=== PATIENT | female | born 1960 | race Asian ===

== ENCOUNTER 2024-11-27 16:13 | Inpatient (IN) ==
[2024-11-27 17:23] LABS: BASOPHILS % (AUTO) 0.2 %; EOSINOPHILS # (AUTO) 0.1 10^3/uL (0.0-0.7); EOSINOPHILS % (AUTO) 0.4 %; HCT - HEMATOCRIT 38.6 % (37.0-47.0); HGB - HEMOGLOBIN 12.6 g/dL (12.0-16.0); LYMPHOCYTES # (AUTO) 2.9 10^3/uL (1.5-3.5); LYMPHOCYTES % (AUTO) 15.4 %; MEAN CORPUSCULAR HEMOGLOBIN 31.4 pg (27.0-31.0); MEAN CORPUSCULAR HGB CONC 32.6 g/dL (32.0-36.0); MEAN CORPUSCULAR VOLUME 96.3 fL (81.0-99.0); MEAN PLATELET VOLUME 10.5 fL (7.9-10.8); MONOCYTES # (AUTO) 1.2 10^3/uL (0.0-1.0); MONOCYTES % (AUTO) 6.4 %; NEUTROPHILS # (AUTO) 14.6 10^3/uL (1.5-6.6); PLT - PLATELET COUNT 192 10^3/uL (130-450); RED BLOOD COUNT 4.01 10^6/uL (4.20-5.40); RED CELL DISTRIBUTION WIDTH 12.2 % (12.0-15.0)
[2024-11-27 17:36] LABS: ALBUMIN 4.3 g/dL (3.2-5.5); ALBUMIN/GLOBULIN RATIO 1.2 (1.0-2.2); BILIRUBIN,TOTAL 0.6 mg/dL (0.2-1.0); CALCIUM 9.6 mg/dL (8.5-10.3); CREATININE 0.6 mg/dL (0.6-1.3); POTASSIUM 3.6 mmol/L (3.5-4.5); TOTAL PROTEIN 7.9 g/dL (6.4-8.9)
[2024-11-27] MEDS ORDERED: iohexoL-300 100 ML VIAL ONE (18:01)
--- NOTE | 2024-11-27 18:17 | ED Physician Documentation ---
History of Present Illness Stated complaint Stated Complaint: ABD PX Chief complaint Chief Complaint: Abd Pain History obtained from History obtained from: Patient and Family History of Present Illness Pain level max: 6 Pain level now: 6 Additonal information Additional information: Patient is a 64-year-old female who presents to the emergency department for right lower quadrant abdominal pain x 4 days. Saw her PCP today and was sent here for further evaluation. No fevers. Worse with walking and movement. Does not take any medications at home. No nausea, vomiting, diarrhea. No history of abdominal surgeries. No dysuria or urinary frequency. Has not had similar symptoms previously. Does not take any medications at home Review of Systems Constitutional Denies: Fever or Chills Ears, nose, mouth, and throat Denies: Neck pain Respiratory Denies: Cough Gastrointestinal Denies: Nausea or Vomiting Genitourinary Denies: Painful urination, Urinary frequency or Urinary urgency Musculoskeletal Denies: Back pain or Neck pain Meds/Allgy Home Medications Ambulatory Orders Medication Instructions Recorded Confirmed benzonatate 100 mg capsule 100 mg PO TID PRN cough #30 caps 09/07/24 09/07/24 Allergies Allergies Allergy/AdvReac Type Severity Reaction Status Date / Time No Known Drug Allergies Allergy Verified 11/27/24 16:44 [facility], [facility] Medical History Medical History (Updated 11/27/24 @ 18:42 by Benjamin Garcia MD) No pertinent past medical history Surgical History Surgical History (Updated 11/27/24 @ 18:01 by Twyla Starks RN) No pertinent past surgical history Social History Social History (Updated 09/03/24 @ 09:10 by KATY Britton) Smoking Status: Unknown if ever smoked Relationship: Do you feel safe in your home environment?: Yes Suffered physical, verbal, emotional, or financial abuse?: No POLST Patient has POLST: No Exam Constitutional normal general appearance and no apparent distress HENMT oropharynx normal moist mucous membranes Eyes PERRL Neck/C-Spine visual inspection normal Respiratory breath sounds equal bilaterally, normal respiratory effort and clear to auscultation bilaterally Cardiovascular normal heart rate noted and regular rhythm noted Gastrointestinal Tender to palpation right lower quadrant. Tenderness at McBurney's point. No distention. Positive Rovsing and obturator signs. Positive psoas sign. Positive heeltap Genitourinary no CVA tenderness Extremities no edema Neurology speech normal Psychiatry mental status grossly normal and oriented x3 Skin skin color normal Results Vitals Vitals: Vital Signs - 24 hr 11/27/24 16:45 11/27/24 17:59 Temperature 37.0 C 36.7 C Temperature Source Temporal Artery Scan Oral Pulse Rate 106 H 80 Respiratory Rate 18 16 Blood Pressure 133/96 H 128/90 O2 Saturation 100 98 O2 Source Room air Room air Pain Intensity 0 6 Oxygen O2 Source Room air Labs Labs: Laboratory Tests 11/27/24 11/27/24 17:18 18:08 WBC 19.0 H RBC 4.01 L Hgb 12.6 Hct 38.6 MCV 96.3 MCH 31.4 H MCHC 32.6 RDW 12.2 Plt Count 192 MPV 10.5 Neut # (Auto) 14.6 H Lymph # (Auto) 2.9 [place] # (Auto) 1.2 H Eos # (Auto) 0.1 Baso # (Auto) 0.0 Absolute Nucleated RBC 0.00 Nucleated RBC % 0.0 Sodium 135 Potassium 3.6 Chloride 99 L Carbon Dioxide 29 Anion Gap 7.0 BUN 14 Creatinine 0.6 Estimated GFR (MDRD) 101 Glucose 108 H Calcium 9.6 Total Bilirubin 0.6 AST 21 ALT 22 Alkaline Phosphatase 104 Total Protein 7.9 Albumin 4.3 Globulin 3.6 Albumin/Globulin Ratio 1.2 Lipase 11 Urine Color YELLOW Urine Clarity CLEAR Urine pH 6.0 Ur Specific [place] 1.010 Urine Protein NEGATIVE Urine Glucose (UA) NEGATIVE Urine Ketones TRACE Urine Occult Blood NEGATIVE Urine Nitrite NEGATIVE Urine Bilirubin NEGATIVE Urine Urobilinogen 0.2 (NORMAL) Ur Leukocyte Esterase NEGATIVE Ur Microscopic Review NOT INDICATED Urine Culture Comments NOT INDICATED Rads (name of study) CT abdomen pelvis: Relevant Findings:: Final report received PD Medical Decision Making ED course Complexity details: reviewed results, considered differential and d/w patient ED course: 64-year-old female with acute appendicitis on CT scan. Discussed with Dr. Alicea, general surgery who will come and plan on taking the patient to the OR. Patient started on Zosyn. Given IV fluids. Patient signed out to the oncoming emergency department physician awaiting OR. This document was made in part using voice recognition software. While efforts are made to proofread this document, sound alike and grammatical errors may occur. Discharge Plan Discharge Patient Disposition: ED Transfer to [facility] Condition: Stable Clinical Impression: Acute appendicitis Qualifiers: Acute appendicitis type: with localized peritonitis Appendicitis gangrene prese nce: unspecified whether gangrene present Appendicitis perforation presence: unspecified whether perforation present Appendicitis abscess presence: unspecified whether abscess present Qualified Code(s): K35.30 - Acute appendicitis with localized peritonitis, without perforation or gangrene Prescriptions: No Action benzonatate 100 mg capsule 100 mg PO TID PRN (Reason: cough) Qty: 30 0RF Print Language: Icelandic Stand Alone Forms: PCP List
[2024-11-27] MEDS: iohexoL-300 100 ML VIAL IVP ONE (18:20)
--- NOTE | 2024-11-27 18:32 | CT Report ---
PROCEDURE: CT Abdomen/Pelvis W INDICATIONS: RLQ abd pain CONTRAST: omni 300, 100 TECHNIQUE: After the administration of intravenous contrast, a CT scan of the abdomen and pelvis was performed. Images were recorded and evaluated at appropriate window settings. Reformats: coronal and sagittal. F or radiation dose reduction, the following was used: automated exposure control, adjustment of mA and /or kV according to patient size. COMPARISON: None. FINDINGS: Image quality: Diagnostic. Lower chest: Unremarkable. Liver: No solid mass. Gallbladder: No radiopaque stones or wall thickening. Biliary tree: No intrahepatic or extrahepatic dilation, accounting for age. Spleen: No splenomegaly. Pancreas: No pancreatic ductal dilation. Adrenals: No adrenal nodule. Kidneys and ureters: No hydronephrosis. No renal cystic lesion which requires follow up. No solid mas s. Stomach, bowel and peritoneum: There is no bowel obstruction. Enlarged appendix is noted within right lower quadrant with appendiceal wall thickening and periappendiceal fat stranding best seen on serie s 2 image 103 and series 4 image 31. No abscess collection. No extraluminal air is seen to suggest pe rforation. Possible small appendicolith is seen. No colonic wall thickening. No free fluid or free ai r. Lymph nodes: No central or retroperitoneal adenopathy. Vessels: No infrarenal aortic aneurysm. Patent portal vein. PELVIS Reproductive organs: Unremarkable. Bladder: No abnormal wall thickening, accounting for underdistention. Pelvic lymph nodes: No pelvic adenopathy by size criteria. Bones: No aggressive osseous abnormality. Other: No significant ventral or inguinal hernia. IMPRESSION: 1. Finding is consistent with acute appendicitis with small appendicolith. No signs of perforation. N o abscess collection. No other area of abnormal bowel wall thickening. No free fluid or free air. Reviewed by: Ghanshyam Maradiaga MD on 11/27/2024 6:30 PM PST Approved by: Ghanshyam Maradiaga MD on 11/27/2024 6:30 PM PST Station ID: [id number]
[2024-11-27 18:40] LABS: BILIRUBIN,URINE NEGATIVE (NEGATIVE); GLUCOSE, URINE (UA) NEGATIVE (NEGATIVE); KETONES,URINE (UA) TRACE mg/dL (NEGATIVE); LEUKOCYTE ESTERASE, URINE NEGATIVE (NEGATIVE); NITRITE,URINE NEGATIVE (NEGATIVE); OCCULT BLOOD,URINE NEGATIVE (NEGATIVE); PROTEIN,URINE NEGATIVE (NEGATIVE); UROBILINOGEN,URINE 0.2 (NORMAL) E.U./dL (NORMAL)
[2024-11-27 18:44] LABS: CLARITY,URINE CLEAR (CLEAR)
[2024-11-27] MEDS: PIPERACILLIN/TAZOBACTAM 3.375 GM in SODIUM CHLORIDE 0.9% MINIBAG 100 ML IV STA (19:08)
[2024-11-27] MEDS: SODIUM CHLORIDE 0.9% 1,000 ML IV STA (19:08)
--- NOTE | 2024-11-27 19:44 | ANESTHESIA PROCEDURE NOTE ---
Pre-Anesthesia VS, & Labs Diagnosis Surgical Diagnosis:: acute appendicitis Procedure Procedure: laparascopic appendectomy Vitals Vital Signs: Temp Pulse Resp BP Pulse Ox 37.5 C 91 19 111/72 96 11/27/24 19:33 11/27/24 19:33 11/27/24 19:33 11/27/24 19:33 11/27/24 19:33 Height (in): 5 ft 1 in Weight (kg): 58 kg Body Mass Index: 24.1 BMI Classification: Normal NPO NPO: >8 hours Is Patient ?: No Lab Results Current Lab Results: Laboratory Tests 11/27/24 17:18: WBC 19.0 H, RBC 4.01 L, Hgb 12.6, Hct 38.6, MCV 96.3, MCH 31.4 H , MCHC 32.6, RDW 12.2, Plt Count 192, MPV 10.5, Neut # (Auto) 14.6 H, Lymph # (Auto) 2.9, [place] # (Auto) 1.2 H, Eos # (Auto) 0.1, Baso # (Auto) 0.0, Absolute Nucleated RBC 0.00, Nucleated RBC % 0.0, Sodium 135, Potassium 3.6, Chloride 99 L, Carbon Dioxide 29, Anion Gap 7.0, BUN 14, Creatinine 0.6, Estimated GFR (MDRD) 101, Glucose 108 H, Calcium 9.6, Total Bilirubin 0.6, AST 21, ALT 22, Alkaline Phosphatase 104, Total Protein 7.9, Albumin 4.3, Globulin 3.6, Albumin/Globulin Ratio 1.2, Lipase 11 Lab results reviewed: Yes 11/27/24 17:18 11/27/24 17:18 Meds/Allgy Home Medications Ambulatory Orders Medication Instructions Recorded Confirmed benzonatate 100 mg capsule 100 mg PO TID PRN cough #30 caps 09/07/24 09/07/24 Allergies Allergies Allergy/AdvReac Type Severity Reaction Status Date / Time No Known Drug Allergies Allergy Verified 11/27/24 16:44 [facility] Medical History Medical History No pertinent past medical history Surgical History Surgical History No pertinent past surgical history Social History Social History Smoking Status: Unknown if ever smoked Relationship: Do you feel safe in your home environment?: Yes Suffered physical, verbal, emotional, or financial abuse?: No POLST Patient has POLST: No POLST Status: Full Code Results EKG Results EKG Comparison: Reviewed EKG Anesthesia Exam (Expanded) Exam General: Alert and No acute distress Dental: WNL Mouth Openin Fingerbreadth Neck Mobility: Normal Mallampati classification: II Thyromental Distance: 4-6 cm Respiratory: Lungs clear Cardiovascular: Regular rate Plan Plan Anesthesia Type: General Consent for Procedure(s) Verified and Reviewed: Yes Code Status: Attempt Resuscitation ASA Classification ASA classification: 1-Healthy patient Is this case an emergency?: Yes
[2024-11-27] MEDS ORDERED: LIDOCAINE 1%-EPI 1:100000 20 ML MDV ONE (19:52)
[2024-11-27] MEDS ORDERED: BUPIVACAINE 0.5% PF 10 ML VIAL ONE (19:52)
[2024-11-27] MEDS ORDERED: fentaNYL 100 MCG/2 ML VIAL ONE ×2 (19:55→21:28)
[2024-11-27] MEDS ORDERED: PROPOFOL 200 MG/20 ML VIAL IVP ONE (19:55)
[2024-11-27] MEDS ORDERED: LIDOCAINE-PF 2% 10 ML AMP SUBQ ONE (19:55)
[2024-11-27] MEDS ORDERED: ACETAMINOPHEN 1,000 MG/100 ML 1,000 MG/100 ML BAG IV ONE (19:55)
[2024-11-27] MEDS ORDERED: MIDAZOLAM 2 MG/2 ML VIAL ONE (19:55)
[2024-11-27] MEDS ORDERED: ROCURONIUM 50 MG/5 ML VIAL ONE (19:55)
--- NOTE | 2024-11-27 19:55 | CONSULTATION NOTE ---
Chief Complaint Chief Complaint Chief Complaint: abdominal pain History of Present Illness Admitted From Admitted From:: ed History Obtained From Records Reviewed: yes History obtained from: pt Exam Limitations: none History of Present Illness HPI Comment/Other: 3 to 4 days progressive abdominal pain with loss of appetite. entire abdomen now hurts Meds/Allgy Home Medications Ambulatory Orders Medication Instructions Recorded Confirmed benzonatate 100 mg capsule 100 mg PO TID PRN cough #30 caps 09/07/24 09/07/24 Allergies Allergies Allergy/AdvReac Type Severity Reaction Status Date / Time No Known Drug Allergies Allergy Verified 11/27/24 16:44 [facility] Medical History Medical History No pertinent past medical history Surgical History Surgical History No pertinent past surgical history Social History Social History Smoking Status: Unknown if ever smoked Relationship: Do you feel safe in your home environment?: Yes Suffered physical, verbal, emotional, or financial abuse?: No POLST Patient has POLST: No POLST Status: Full Code Results Lab Results Lab results reviewed: Yes 11/27/24 17:18 11/27/24 17:18 Other Lab Results: Lab Results x24hrs 11/27/24 11/27/24 Range/Units 18:08 17:18 WBC 19.0 H (4.8-10.8) x10^3/uL RBC 4.01 L (4.20-5.40) 10^6/uL Hgb 12.6 (12.0-16.0) g/dL Hct 38.6 (37.0-47.0) % MCV 96.3 (81.0-99.0) fL MCH 31.4 H (27.0-31.0) pg MCHC 32.6 (32.0-36.0) g/dL RDW 12.2 (12.0-15.0) % Plt Count 192 (130-450) 10^3/uL MPV 10.5 (7.9-10.8) fL Neut # (Auto) 14.6 H (1.5-6.6) 10^3/uL Lymph # (Auto) 2.9 (1.5-3.5) 10^3/uL [place] # (Auto) 1.2 H (0.0-1.0) 10^3/uL Eos # (Auto) 0.1 (0.0-0.7) 10^3/uL Baso # (Auto) 0.0 (0.0-0.1) 10^3/uL Absolute Nucleated RBC 0.00 x10^3/uL Nucleated RBC % 0.0 /100WBC Sodium 135 (135-145) mmol/L Potassium 3.6 (3.5-4.5) mmol/L Chloride 99 L (101-111) mmol/L Carbon Dioxide 29 (21-32) mmol/L Anion Gap 7.0 (6-13) BUN 14 (6-20) mg/dL Creatinine 0.6 (0.6-1.3) mg/dL Estimated GFR (MDRD) 101 (>89) Glucose 108 H (74-104) mg/dL Calcium 9.6 (8.5-10.3) mg/dL Total Bilirubin 0.6 (0.2-1.0) mg/dL AST 21 (10-42) IU/L ALT 22 (10-60) IU/L Alkaline Phosphatase 104 (42-121) IU/L Total Protein 7.9 (6.4-8.9) g/dL Albumin 4.3 (3.2-5.5) g/dL Globulin 3.6 (2.1-4.2) g/dL Albumin/Globulin Ratio 1.2 (1.0-2.2) Lipase 11 (11-82) U/L Urine Color YELLOW Urine Clarity CLEAR (CLEAR) Urine pH 6.0 (5.0-7.5) PH Ur Specific [place] 1.010 (1.002-1.030) Urine Protein NEGATIVE (NEGATIVE) mg/dL Urine Glucose (UA) NEGATIVE (NEGATIVE) mg/dL Urine Ketones TRACE (NEGATIVE) mg/dL Urine Occult Blood NEGATIVE (NEGATIVE) Urine Nitrite NEGATIVE (NEGATIVE) Urine Bilirubin NEGATIVE (NEGATIVE) Urine Urobilinogen 0.2 (NORMAL) (NORMAL) E.U./dL Ur Leukocyte Esterase NEGATIVE (NEGATIVE) Ur Microscopic Review NOT INDICATED Urine Culture Comments NOT INDICATED Review of Systems Status of ROS: 10 or more systems reviewed and unremarkable except as noted in history and below Exam Constitutional normal general appearance and no apparent distress HENMT normocephalic and head/scalp atraumatic Eyes PERRL, EOMs intact bilaterally and no scleral icterus Neck/C-Spine trachea midline Respiratory normal respiratory effort Cardiovascular normal heart rate noted and regular rhythm noted Gastrointestinal right lower quadrant greater than diffuse tenderness with peritonitis Neurology speech normal and GCS 15 Psychiatry oriented x3, thought process normal and memory normal Conclusion/Plan Problem List (1) Appendicitis with peritonitis: Plan: very significant appendicitis with significant inflammation and free fluid. plan appendectomy with drain and at least 1 over night stay. parq held and consent obtained Lab Results Lab results reviewed: Yes 11/27/24 17:18 11/27/24 17:18
[2024-11-27] MEDS ORDERED: DEXAMETHASONE 4 MG/ML VIAL ONE (19:56)
[2024-11-27] MEDS ORDERED: SUGAMMADEX 200 MG/2 ML VIAL IVP ONE (19:56)
[2024-11-27] MEDS ORDERED: ONDANSETRON 4 MG/2 ML VIAL ONE (19:56)
[2024-11-27] MEDS ORDERED: diphenhydrAMINE INJ 50 MG/ML VIAL ONE (21:06)
[2024-11-27] MEDS ORDERED: ONDANSETRON ODT 4 MG TABLET TL PRN (21:59)
[2024-11-27] MEDS ORDERED: SODIUM CHLORIDE FLUSH 0.9% 10 ML SYRINGE IVP PRN (21:59)
--- NOTE | 2024-11-27 22:12 | OPERATIVE REPORT ---
Operative Report General Procedure Data: Operation Date: 11/27/24 20:11 Proposed Procedures p Laparoscopic Appendectomy(Not Applicable) - Talat Alicea MD Actual Procedures p Laparoscopic Appendectomy - and umbilical hernia repair Talat Alicea MD Pre-Op Diagnosis: abd pain Anesthesia Type General Case Staff Anesthesia Provider: Adan Crystal Times Into Recovery: 11/27/24 22:02 Procedure Start: 11/27/24 20:41 Procedure End: 11/27/24 21:54 Time out: 11/27/24 20:40 Pre-Op Diagnosis: appendicitis with diffuse peritonitis and free fluid Post Op Diagnosis: appendicitis with abscess, phlegmon, incarcerated umbilical hernia Procedure Note Drain/Tube Type: Carlos drain Pathology: appenidix Indications: peritonitis Findings: as above. significant fibropurulent exudate on distal small bowel and right colon Other Other Information/Narrative: The patient was prepped identified brought to the operating room and placed in supine position. She voided prior to surgery. Sequential compression devices were placed. General endotracheal anesthesia was induced. She was prepped and draped in a sterile fashion. She received antibiotics in the emergency department. She had incarcerated umbilical hernia. An infraumbilical incision was made. Approximately 1 x 2 cm of preperitoneal adipose tissue was removed. Veress needle was placed through the hernia defect. CO2 was insufflated to a pressure of 15. A 12 mm trocar was placed with 30 degree scope. Under direct vision a 5 mm trocar was placed suprapubic and a 5 mm trocar was placed in the right upper quadrant. Omentum was densely adherent over the top of her appendix and the cecum. This was carefully peeled away. Her terminal ileum was densely adhered to the right lower quadrant and pelvis with thick fibrin no purulent exudate. Bowel was carefully taken down. The appendix was identified. It was markedly thickened and inflamed. Peritoneum was partially taken down at the base of the cecum. Inflamed adipose tissue and peritoneum was carefully peeled away from the base of the appendix. Base of appendix at the cecum was then divided with an Endo LINDA intestinal load. Secure closure was obtained. Mesoappendix was divided with an Endo LINDA vascular load. She had an abscess within the mesoappendix. There was bleeding through the staple line. Hemostasis was assured with 10 mm clips. Appendix was placed in an Endo Catch bag. The abdomen was thoroughly irrigated. A 15 round Carlos drain was placed in the right gutter down into the right pelvis and brought out through the suprapubic trocar site. It was secured with a 3-0 nylon. Appendix was brought out. Fascia at the umbilicus was closed with a running 0 Vicryl suture. Subcutaneous tissue was irrigated. Skin was loosely reapproximated with buried interrupted 4-0 Monocryl. Dressing was applied. She tolerated the procedure well was awakened and brought to recovery in good condition.
[2024-11-27] MEDS ORDERED: METOCLOPRAMIDE 10 MG/2 ML VIAL IVP PRN (22:14)
[2024-11-27] MEDS ORDERED: ePHEDrine 50 MG/ML VIAL IVP PRN (22:14)
[2024-11-27] MEDS ORDERED: MORPHINE 2 MG/ML CARPUJECT IVP PRN (22:14)
[2024-11-27] MEDS ORDERED: NALOXONE 0.4 MG/ML VIAL IVP PRN (22:14)
[2024-11-27] MEDS ORDERED: ONDANSETRON 4 MG/2 ML VIAL IVP PRN (22:14)
[2024-11-27] MEDS ORDERED: ATROPINE ABBOJECT 1 MG/10 ML SYRINGE IVP PRN (22:14)
[2024-11-27] MEDS ORDERED: HYDROmorphone 0.5 MG/0.5 ML SYRINGE IVP PRN (22:14)
[2024-11-27] MEDS: fentaNYL 100 MCG/2 ML VIAL IVP PRN (22:26)
[2024-11-27] MEDS: D5.45NS W/20 MEQ KCL 1,000 ML IV SCH (23:18)
[2024-11-28] MEDS: SODIUM CHLORIDE FLUSH 0.9% 10 ML SYRINGE IVP SCH (01:19)
[2024-11-28] MEDS: HYDROmorphone 0.5 MG/0.5 ML SYRINGE IVP PRN (01:53)
[2024-11-28] MEDS: ONDANSETRON 4 MG/2 ML VIAL IVP PRN (01:55)
[2024-11-28] MEDS: PIPERACILLIN/TAZOBACTAM 3.375 GM in SODIUM CHLORIDE 0.9% MINIBAG 100 ML IV SCH ×2 (02:02→04:29)
[2024-11-28] MEDS: oxyCODONE 5 MG TABLET PO PRN (04:30)
--- NOTE | 2024-11-28 04:36 | ANESTHESIA POST OP EVALUATION ---
Anesthesia Post Eval Post Anesthesia Eval Vitals: Last Vital Signs Temp 36.7 C 11/28/24 01:45 Pulse 86 11/28/24 01:45 Resp 18 11/28/24 01:45 BP 106/80 11/28/24 01:45 Pulse Ox 95 11/28/24 01:45 CV Function Including HR & BP: Stable Pain Control: Satisfactory Nausea & Vomiting: Negative Mental Status: Baseline Respiratory Status: Airway Patent Hydration Status: Satisfactory Anesthesia Complications: None
[2024-11-28] MEDS: ENOXAPARIN 40 MG/0.4 ML SYRINGE SUBQ SCH (08:42)
--- NOTE | 2024-11-28 12:51 | PROVIDER PROGRESS NOTE ---
Subjective Subjective Subjective: feeling better however nausea with po. urine is no longer dark and she is not thirsty Current Medications Current Medications Current Medications: Current Medications Generic Name Dose Route Start Last Admin Trade Name Freq PRN Reason Stop Dose Admin Acetaminophen 650 mg 11/27/24 21:59 Acetaminophen 325 Mg Tablet PO Q4HR PRN Pain 1 to 4, or Fever Enoxaparin Sodium 40 mg 11/28/24 09:00 11/28/24 08:42 Enoxaparin 40 Mg/0.4 Ml Syringe SUBQ 40 mg DAILY CALEB Administration Hydromorphone HCl 0.5 mg 11/27/24 21:59 11/28/24 01:53 Hydromorphone 0.5 Mg/0.5 Ml Syringe IVP 0.5 mg Q2H PRN Administration Pain 8 to 10 Potassium Chloride/Dextrose/Sod Cl 1,000 mls @ 100 mls/hr 11/27/24 22:00 11/28/24 09:24 D5.45ns W/20 Meq Kcl IV 100 mls/hr .Q10H CALEB Administration Piperacillin Sod/Tazobactam 100 mls @ 25 mls/hr 11/28/24 02:00 11/28/24 09:32 Sod 3.375 gm/ Sodium Chloride IV 25 mls/hr Q8H CALEB Administration Ondansetron HCl 4 mg 11/27/24 21:59 Ondansetron Odt 4 Mg Tablet TL Q6HR PRN Nausea / Vomiting Ondansetron HCl 4 mg 11/27/24 21:59 11/28/24 08:22 Ondansetron 4 Mg/2 Ml Vial IVP 4 mg Q6HR PRN Administration Nausea / Vomiting Oxycodone HCl 5 mg 11/27/24 21:59 11/28/24 08:44 Oxycodone 5 Mg Tablet PO 5 mg Q4HR PRN Administration Pain 5 to 7 Sodium Chloride 10 ml 11/27/24 21:59 Sodium Chloride Flush 0.9% 10 Ml Syringe IVP PRN PRN NEEDED PER PROVIDER ORDERS Sodium Chloride 10 ml 11/28/24 01:00 11/28/24 08:43 Sodium Chloride Flush 0.9% 10 Ml Syringe IVP Not Given 0100,0900,1700 [facility] Objective Vital Signs/Intake & Output Reviewed Vital Signs: Yes Vital Signs: Vital Signs x48h Temp Pulse Resp BP Pulse Ox 02/08/25 08:01 36.6 C 72 16 132/78 H 95 11/28/24 05:45 36.6 C 69 18 117/71 95 Intake & Output: Intake & Output 11/25/24 11/26/24 11/27/24 11/28/24 23:59 23:59 23:59 23:59 Intake Total 1900 / 1900 1320 / 1320 Output Total 110 / 110 Balance 1875 / 1875 1210 / 1210 Weight (kg) 61.5 kg Objective General Appearance: positive No acute distress and Alert Respiratory: positive No respiratory distress Abdomen: positive Other (minimal distension. julia serosanguinous and slightly cloudy) Neurologic/Psychiatric: positive Oriented x3 Lab Results 11/27/24 17:18 11/27/24 17:18 Other Labs: Lab Results x24hrs 11/27/24 11/27/24 Range/Units 18:08 17:18 WBC 19.0 H (4.8-10.8) x10^3/uL RBC 4.01 L (4.20-5.40) 10^6/uL Hgb 12.6 (12.0-16.0) g/dL Hct 38.6 (37.0-47.0) % MCV 96.3 (81.0-99.0) fL MCH 31.4 H (27.0-31.0) pg MCHC 32.6 (32.0-36.0) g/dL RDW 12.2 (12.0-15.0) % Plt Count 192 (130-450) 10^3/uL MPV 10.5 (7.9-10.8) fL Neut # (Auto) 14.6 H (1.5-6.6) 10^3/uL Lymph # (Auto) 2.9 (1.5-3.5) 10^3/uL [place] # (Auto) 1.2 H (0.0-1.0) 10^3/uL Eos # (Auto) 0.1 (0.0-0.7) 10^3/uL Baso # (Auto) 0.0 (0.0-0.1) 10^3/uL Absolute Nucleated RBC 0.00 x10^3/uL Nucleated RBC % 0.0 /100WBC Sodium 135 (135-145) mmol/L Potassium 3.6 (3.5-4.5) mmol/L Chloride 99 L (101-111) mmol/L Carbon Dioxide 29 (21-32) mmol/L Anion Gap 7.0 (6-13) BUN 14 (6-20) mg/dL Creatinine 0.6 (0.6-1.3) mg/dL Estimated GFR (MDRD) 101 (>89) Glucose 108 H (74-104) mg/dL Calcium 9.6 (8.5-10.3) mg/dL Total Bilirubin 0.6 (0.2-1.0) mg/dL AST 21 (10-42) IU/L ALT 22 (10-60) IU/L Alkaline Phosphatase 104 (42-121) IU/L Total Protein 7.9 (6.4-8.9) g/dL Albumin 4.3 (3.2-5.5) g/dL Globulin 3.6 (2.1-4.2) g/dL Albumin/Globulin Ratio 1.2 (1.0-2.2) Lipase 11 (11-82) U/L Urine Color YELLOW Urine Clarity CLEAR (CLEAR) Urine pH 6.0 (5.0-7.5) PH Ur Specific [place] 1.010 (1.002-1.030) Urine Protein NEGATIVE (NEGATIVE) mg/dL Urine Glucose (UA) NEGATIVE (NEGATIVE) mg/dL Urine Ketones TRACE (NEGATIVE) mg/dL Urine Occult Blood NEGATIVE (NEGATIVE) Urine Nitrite NEGATIVE (NEGATIVE) Urine Bilirubin NEGATIVE (NEGATIVE) Urine Urobilinogen 0.2 (NORMAL) (NORMAL) E.U./dL Ur Leukocyte Esterase NEGATIVE (NEGATIVE) Ur Microscopic Review NOT INDICATED Urine Culture Comments NOT INDICATED Diagnostic Imaging Diagnostic Imaging Results: positive Read independently Assessment/Plan Problem List (1) Appendicitis with peritonitis: Impression: ileus as anticipated given significant inflammation, abscess, fibropurulent exudate in much of the right pelvis. clears as tolerated. continue ivf and iv abx. home when ileus resolved which in my experience is often 3 to 4 days after surgery when this much inflammation is present.
[2024-11-28] MEDS: ACETAMINOPHEN 325 MG TABLET PO PRN (16:03)
[2024-11-28] MEDS: LACTATED RINGERS 1,000 ML IV SCH (19:29)
[2024-11-29 11:14] LABS: HCT - HEMATOCRIT 33.7 % (37.0-47.0); HGB - HEMOGLOBIN 10.8 g/dL (12.0-16.0); MEAN CORPUSCULAR HEMOGLOBIN 31.8 pg (27.0-31.0); MEAN CORPUSCULAR VOLUME 99.1 fL (81.0-99.0); RED BLOOD COUNT 3.4 10^6/uL (4.20-5.40); RED CELL DISTRIBUTION WIDTH 12.2 % (12.0-15.0); WHITE BLOOD COUNT 9.3 x10^3/uL (4.8-10.8)
[2024-11-29 11:31] LABS: MAGNESIUM 1.9 mg/dL (1.7-2.3)
[2024-11-29 11:37] LABS: CALCIUM 8.4 mg/dL (8.5-10.3); CREATININE 0.6 mg/dL (0.6-1.3); PHOSPHORUS 2.2 mg/dL (2.5-5.0); POTASSIUM 3.9 mmol/L (3.5-4.5)
[2024-11-29 12:05] VITALS: BP 148/83; TEMP 98.6; O2SAT 95
--- NOTE | 2024-11-29 13:05 | PHARMACY PROGRESS NOTE ---
Best Possible Medication History Admit Date and Time: 11/27/24 2277 Processed by: Pharmacy Medications reviewed in ED?: No Medication History completed: Yes Patient Interview: Completed Secondary Source(s): Insurance records [facility] Statement: Per Pt interview, no home medications. As the person ultimately responsible for medication therapy, providers are able to order a medication from an existing home medication list in [facility] via the "Reconcile Routine" prior to Confirmation of that medication by call center support representative. Such practice is discouraged except when the physician, in their clinical judgment, deems that a medical need exists for a medication without regard to previous use.
--- NOTE | 2024-11-29 13:33 | Discharge Summary ---
"Discharge Summary Admit Date: 11/27/24 Discharge Date: 11/29/24 Discharging Provider: Lakia Tee DO Code Status: Attempt Resuscitation DIAGNOSES Admission Diagnoses: acute appendicitis with peritonitis Discharge Diagnoses with Status of Each Condition: acute appendicitis with peritonitis - resolved umbilical hernia - repaired HPI History of Present Illness: History of Present Illness HPI Comment/Other: 3 to 4 days progressive abdominal pain with loss of appetite. entire abdomen now hurts (1) Appendicitis with peritonitis: Plan: very significant appendicitis with significant inflammation and free fluid. plan appendectomy with drain and at least 1 over night stay. parq held and consent obtained CONSULTS | PROCEDURES Consultations: General Surgery - Dr. Jhonatan Alicea Procedures: laparoscopic appendectomy with drain placement HOSPITAL COURSE Hospital Course: The patient was admitted and taken to the operating room for a laparoscopic appendectomy. She was found to have purulent peritonitis, the appendix was removed and a drain was placed. She was admitted to the floor for postoperative monitoring of the drain as well as continued IV antibiotics. On POD1 her diet was advanced to regular diet, she was ambulating and voiding without difficulty. On POD2 she tolerated a regular diet, was passing flatus, and nausea had resolved; Her drain was serous and was removed; her other incisions were CDI; her WBC had normalized (19 --> 9). She remained HD normal and afebrile throughout her postoperative course, and pain was well controlled on multimodal regimen. She was discharged to home on POD2 with a course of PO antibiotics. ALLERGIES Allergies Allergy/AdvReac Type Severity Reaction Status Date / Time No Known Drug Allergies Allergy Verified 11/27/24 16:44 MEDICATIONS Ambulatory Orders Medication Instructions Recorded Confirmed acetaminophen 500 mg tablet 1,000 mg (2 x 500 mg) PO Q8HR 11/29/24 post-op pain #60 tabs amoxicillin 875 mg-potassium 1 tab PO Q12H 4 days #8 tabs 11/29/24 clavulanate 125 mg tablet ibuprofen 800 mg tablet 800 mg PO Q8H post-op pain #60 11/29/24 tabs ondansetron 4 mg disintegrating 4 mg PO Q8H PRN nausea and 11/29/24 tablet vomiting #7 tabs oxycodone 5 mg tablet 5 mg PO Q4H PRN breakthrough pain 11/29/24 #10 tabs polyethylene glycol 3350 17 17 g PO BID #238 grams 11/29/24 gram/dose oral powder PHYSICAL EXAM AT DISCHARGE General Appearance: positive No acute distress and Alert Eyes Bilateral: positive Normal inspection and EOMI Neck: positive Nml inspection Respiratory: positive No respiratory distress Cardiovascular: positive Regular rate & rhythm Abdomen: positive Non-tender and Other (lap incisions CDI. Drain site clean, gauze dressing applied. ); negative No distention (minimal distension) or Guarding Skin: positive Color nml Extremities: positive Nml appearance Neurologic/Psychiatric: positive Oriented x3 LABS 11/29/24 11:09 11/29/24 11:09 DIAGNOSTIC IMAGING Diagnostic Imaging Results: Read contemporaneously Diagnostic Imaging Results Comments: PT NAME: SADIE TORIBIO MR#: [id number] REG ER/ED AGE: 64 CI DT/TM: 11/27/2405/14/1743 PCP: : 1960 ATT: SEX: F ORD: Benjamin Garcia MD EXAM: [id number] CT/ABPEW ([id number]) PROCEDURE: CT Abdomen/Pelvis W INDICATIONS: RLQ abd pain CONTRAST: omni 300, 100 TECHNIQUE: After the administration of intravenous contrast, a CT scan of the abdomen and pelvis was performed. Images were recorded and evaluated at appropriate window settings. Reformats: coronal and sagittal. For radiation dose reduction, the following was used: automated exposure control, adjustment of mA and/or kV according to patient size. COMPARISON: None. FINDINGS: Image quality: Diagnostic. Lower chest: Unremarkable. Liver: No solid mass. Gallbladder: No radiopaque stones or wall thickening. Biliary tree: No intrahepatic or extrahepatic dilation, accounting for age. Spleen: No splenomegaly. Pancreas: No pancreatic ductal dilation. Adrenals: No adrenal nodule. Kidneys and ureters: No hydronephrosis. No renal cystic lesion which requires follow up. No solid mass. Stomach, bowel and peritoneum: There is no bowel obstruction. Enlarged appendix is noted within right lower quadrant with appendiceal wall thickening and periappendiceal fat stranding best seen on series 2 image 103 and series 4 image 31. No abscess collection. No extraluminal air is seen to suggest perforation. Possible small appendicolith is seen. No colonic wall thickening. No free fluid or free air. Lymph nodes: No central or retroperitoneal adenopathy. Vessels: No infrarenal aortic aneurysm. Patent portal vein. PELVIS Reproductive organs: Unremarkable. Bladder: No abnormal wall thickening, accounting for underdistention. Pelvic lymph nodes: No pelvic adenopathy by size criteria. Bones: No aggressive osseous abnormality. Other: No significant ventral or inguinal hernia. IMPRESSION: 1. Finding is consistent with acute appendicitis with small appendicolith. No signs of perforation. No abscess collection. No other area of abnormal bowel wall thickening. No free fluid or free air. Reviewed by: Ghanshyam Maradiaga MD on 11/27/2024 6:30 PM PST Approved by: Ghanshyam Maradiaga MD on 11/27/2024 6:30 PM PST Station ID: [id number] Report Electronically Signed by Ghanshyam Maradiaga MD 11/27/24 1826 11/27/24 1830 cc: Benjamin Garcia MD FOLLOW UP Follow Up: Dr. Alicea, 2 weeks TIME SPENT Time Spent in Discharge (Minutes): 30 Discharge Plan Discharge Patient Disposition: 01 Home, Self Care Condition: Stable Medically Cleared Date:: 11/29/24 Prescriptions: New acetaminophen 500 mg tablet 1,000 mg PO Q8HR MDD 4000 mg Qty: 60 0RF ibuprofen 800 mg tablet 800 mg PO Q8H Qty: 60 0RF oxycodone 5 mg tablet 5 mg PO Q4H PRN (Reason: breakthrough pain) Qty: 10 0RF Rx Instructions: Take with food. Do Not drive while taking medication. polyethylene glycol 3350 17 gram/dose powder 17 g PO BID Qty: 238 0RF Rx Instructions: use while taking narcotic pain medication ondansetron 4 mg tablet,disintegrating 4 mg PO Q8H PRN (Reason: nausea and vomiting) Qty: 7 0RF amoxicillin-pot clavulanate 875-125 mg tablet 1 tab PO Q12H 4 Days Qty: 8 0RF Activity Restrictions: No lifting > 20# x4 weeks Activity Restrictions/Additional Instructions: DIET - You may resume your normal diet if there is no nausea or vomiting. You may want to avoid spicy, greasy, or heavy foods today to minimize gas. - If nausea or vomiting occurs, don't eat or drink anything for one hour. Then start drinking small amounts of clear liquids. Later, add crackers, gradually building up to your usual diet. ACTIVITY INSTRUCTIONS * No lifting more than 20 pounds for 4 weeks * May shower normally DRESSING CARE * Remove the gauze over the drain site after 48 hours. CARE INSTRUCTIONS * Ice to wound for 15min three times per day. * Using supportive garments to reduce surgical site motion will reduce pain DISCHARGE INSTRUCTIONS * Please call the General Surgery Clinic ([phone]) for any questions, redness or drainage at incision, worsening pain/nausea/vomiting/fever. * Go to the Emergency Room after hours for severe symptoms. MEDICATIONS * You are given 4 days of oral antibiotics (Augmentin) * Use Tylenol (acetaminophen) and Motrin (ibuprofen) on a scheduled basis for the first 3-5 days. * Use Oxycodone (a narcotic) for breakthrough pain. Do not drive while taking Oxycodone. * Oxycodone will call cause constipation - drink plenty of water, and use Miralax twice a day FOR THE NEXT 24 HOURS: - Have a responsible person with you - Avoid any activity that requires you to be alert and coordinated - DO NOT DRIVE a motor vehicle for 24 hours or as long as you are taking opioid pain medication - Do not drink alcoholic beverages - Do not smoke unattended Patient Date Escort Date RN Date Diet: Regular Assessment: 64yoF status post laparoscopic appendectomy and drain placement on 11/27/2024 for acute appendicitis with purulent peritonitis. Drain removed and meeting discharge criteria on POD2. Plan of Treatment: Discharge to Home Complete 4 days PO Antibiotics Follow up in general surgery clinic in 2 weeks Print Language: Chinese Patient Instructions: Surgery Anesthesia After Stand Alone Forms: PCP List Follow-up Care: Talat Alicea MD [Provider Admit Priv/Credential] - 2 Weeks"
== END 2024-11-29 14:10 | disposition home or self-care (01) | DRG 398 ==
LOC: ED 16:13 → SDS 19:50 → ED 20:12 → SDS 20:32 → MS3 21:59
PROVIDERS: ADMIT Surgery; ATTEND Surgery
DX: Z68.23 Body mass index [BMI] 23.0-23.9, adult; K35.30 Acute appendicitis with localized peritonitis, without perforation or gangrene; K42.0 Umbilical hernia with obstruction, without gangrene; R63.0 Anorexia